=== PATIENT | female | born 1985 | race Caucasian/White ===

== ENCOUNTER 2016-08-31 11:04 | Day surgery (SDC) | payer OTHER ==
[~2016-08-31] VITALS: Ht 167.6 cm; Wt 83.0 kg
[~2016-08-31 11:04] MED LIST: ENDOCET 5-3251 EACH PO; EXCEDRIN MIGRA1 EACH PO; FLEXERIL10 MG PO; IBUPROFEN800 MG PO; IRON325 MG PO; KEFLEX500 MG PO; LEVOTHYROXINE50 MCG PO; NAPROSYN500 MG PO; NITROFURANTOIN50 MG PO; NUVARING VAGIN1 EACH PO; PREDNISONE10 M1 PO; PROAIR HFA8.5 GM IH; TYLENOL WITH C1 EACH PO; ~No Medications
[2016-08-31 11:46] VITALS: BP 108/72
[2016-08-31 15:04] VITALS: BP 104/65
[2016-08-31 16:05] VITALS: BP 104/58
== END 2016-08-31 16:15 | disposition home or self-care (01) ==
LOC: SDC 11:04
PROC: 0UDB8ZX Extraction of Endometrium, Via Natural or Artificial Opening Endoscopic, Diagnostic (ICD-10-PCS; principal; 2016-08-31)
DX: N93.8 Other specified abnormal uterine and vaginal bleeding (principal); N93.0 Postcoital and contact bleeding; I10 Essential (primary) hypertension; E05.90 Thyrotoxicosis, unspecified without thyrotoxic crisis or storm; J45.909 Unspecified asthma, uncomplicated; Z88.1 Allergy status to other antibiotic agents; Z91.013 Allergy to seafood; Z80.52 Family history of malignant neoplasm of bladder; Z83.3 Family history of diabetes mellitus; Z82.49 Family history of ischemic heart disease and other diseases of the circulatory system
CPT/HCPCS: 88305; J0690; J1100; J1885; J2250; J2405; J3010

== ENCOUNTER 2016-12-28 10:59 | Day surgery (SDC) | payer OTHER ==
[~2016-12-28] VITALS: Ht 167.6 cm; Wt 83.9 kg
[~2016-12-28 10:59] MED LIST changes: +IRON325 M1 PO
[2016-12-28 11:30] VITALS: BP 119/71
[2016-12-28 16:34] VITALS: BP 111/67
[2016-12-28 18:45] LABS: HEMATOCRIT 38.4 % (36.0-46.0); MCH 30.4 PG (29.0-34.0); MCHC 34.1 G/DL (30.0-36.0); MCV 89.1 FL (83-99); MEAN PLAT.VOLUME 10.8 uM^3 (9.5-12.4); PLATELET COUNT 227 K/uL (156-360); RBC DIS.WIDTH-CV 12.9 % (11.8-14.6); RBC DIS.WIDTH-SD 42.5 % (39-53); RED BLOOD COUNT 4.31 M/uL (3.80-5.20); WHITE BLOOD COUNT 8.1 K/uL (4.1-10.2)
[2016-12-28 19:09] LABS: ANION GAP 11 MEQ/L (2-14); CHLORIDE 104 MEQ/L (99-109); GFR ESTIMATE (CALCULATED) > 59 mL/min/; GLUCOSE 162 mg/dL (70-99); POTASSIUM 3.7 MEQ/L (3.7-5.4); SAMPLE HEMOLYSIS CHECK 0; SAMPLE ICTERIC CHECK 0; SAMPLE LIPEMIA CHECK 0; SODIUM 138 MEQ/L (136-147); UREA NITROGEN (BUN) 8 mg/dL (9-23)
[2016-12-28 19:43] VITALS: BP 102/60
[2016-12-28 23:34] VITALS: BP 106/65
[2016-12-29 04:13] VITALS: BP 97/57
[2016-12-29 06:47] LABS: HEMATOCRIT 36.2 % (36.0-46.0); MCH 29.8 PG (29.0-34.0); MCHC 33.1 G/DL (30.0-36.0); MCV 89.8 FL (83-99); MEAN PLAT.VOLUME 11.4 uM^3 (9.5-12.4); PLATELET COUNT 225 K/uL (156-360); RBC DIS.WIDTH-SD 43.3 % (39-53); RED BLOOD COUNT 4.03 M/uL (3.80-5.20); WHITE BLOOD COUNT 7.3 K/uL (4.1-10.2)
[2016-12-29 07:10] LABS: ANION GAP 7 MEQ/L (2-14); CHLORIDE 104 MEQ/L (99-109); GFR ESTIMATE (CALCULATED) > 59 mL/min/; POTASSIUM 4.2 MEQ/L (3.7-5.4); SAMPLE HEMOLYSIS CHECK 0; SAMPLE ICTERIC CHECK 0; SAMPLE LIPEMIA CHECK 0; SODIUM 140 MEQ/L (136-147); UREA NITROGEN (BUN) 7 mg/dL (9-23)
[2016-12-29 07:21] LABS: GLUCOSE 104 mg/dL (70-99)
[2016-12-29 07:35] VITALS: BP 113/60
[2016-12-29 11:20] VITALS: BP 107/60
[2016-12-29] MEDS ORDERED: TRAMADOL HCL50 MG PO (14:00)
== END 2016-12-29 15:09 | disposition home or self-care (01) ==
LOC: SDC 10:59 → 2SOUTH 14:30 → 2EAST 14:30 → ENRESERV 15:00 → SDC 15:03 → ENRESERV 15:18 → SDC 15:36 → 2EAST 16:27
PROVIDERS: Obstetrics & Gynecology Gynecologic Oncology
DX: N80.0 Endometriosis of uterus (principal); N72 Inflammatory disease of cervix uteri; N93.8 Other specified abnormal uterine and vaginal bleeding; N81.4 Uterovaginal prolapse, unspecified; E03.9 Hypothyroidism, unspecified; E66.9 Obesity, unspecified; F41.8 Other specified anxiety disorders; J45.909 Unspecified asthma, uncomplicated; Z83.3 Family history of diabetes mellitus; Z83.49 Family history of other endocrine, nutritional and metabolic diseases; Z83.2 Family history of diseases of the blood and blood-forming organs and certain disorders involving the immune mechanism; Z82.49 Family history of ischemic heart disease and other diseases of the circulatory system; Z88.0 Allergy status to penicillin; Z68.29 Body mass index [BMI] 29.0-29.9, adult
CPT/HCPCS: 80048; 85027; 88307; 99202; G0378; J0171; J0690; J1100; J1580; J1650; J2175; J2250; J2405; J3010; J7050; S0030

== ENCOUNTER 2017-01-16 17:13 | Emergency (ER) | payer OTHER ==
[~2017-01-16] VITALS: Ht 167.6 cm; Wt 83.0 kg
[~2017-01-16 17:13] MED LIST changes: +TRAMADOL HCL50 MG PO
[2017-01-16] MEDS ORDERED: TESSALON PERLE100 MG PO (19:03)
[2017-01-16 19:14] VITALS: BP 119/72
[2017-01-17] MEDS ORDERED: ROBITUSSIN AC,T10 ML PO (13:08)
== END 2017-01-16 19:15 | disposition home or self-care (01) ==
LOC: EME 17:13
DX: J04.0 Acute laryngitis (principal); R05 Cough; H92.01 Otalgia, right ear; Z88.0 Allergy status to penicillin
CPT/HCPCS: 71020; 99281; 99283

== ENCOUNTER 2017-01-17 10:37 | Emergency (ER) | payer OTHER ==
[~2017-01-17] VITALS: Ht 167.6 cm; Wt 83.0 kg
[~2017-01-17 10:37] MED LIST changes: +TESSALON PERLE100 MG PO
[2017-01-17 12:18] LABS: EOSINOPHIL (%) 0.9 % (0-5); EOSINOPHIL COUNT 0.1 K/uL (0-0.3); HEMATOCRIT 35.8 % (36.0-46.0); IMMATURE GRANULOCYTE (%) 0.6 % (0.0-0.7); IMMATURE GRANULOCYTE COUNT 0.1 K/uL; INSTRUMENT ABS NEUTROPHIL CT 7.2 K/uL; MCH 28.9 PG (29.0-34.0); MCHC 32.7 G/DL (30.0-36.0); MCV 88.4 FL (83-99); MEAN PLAT.VOLUME 10.5 uM^3 (9.5-12.4); MONOCYTE (%) 5.6 % (3-12); MONOCYTE COUNT 0.5 K/uL (0-0.8); NEUTROPHIL (%) 81.2 % (45-76); NEUTROPHIL COUNT 7.2 K/uL (1.8-6.4); RBC DIS.WIDTH-CV 12.4 % (11.8-14.6); RBC DIS.WIDTH-SD 39.9 % (39-53); RED BLOOD COUNT 4.05 M/uL (3.80-5.20); WHITE BLOOD COUNT 8.9 K/uL (4.1-10.2)
[2017-01-17 12:19] LABS: PLATELET COUNT 344 K/uL (156-360)
[2017-01-17 12:30] LABS: CHLORIDE 106 mEq/L (99-109); POTASSIUM 3.4 mEq/L (3.7-5.4); SODIUM 140 mEq/L (136-147)
[2017-01-17 12:33] LABS: GLUCOSE 93 mg/dL (70-99)
[2017-01-17 12:34] LABS: ANION GAP 8 MEQ/L (2-14)
[2017-01-17 12:35] LABS: TOTAL BILIRUBIN 0.4 mg/dL (0.0-1.0)
[2017-01-17 12:36] LABS: ALKALINE PHOSPHATASE 89 IU/L (3-129); GFR ESTIMATE (CALCULATED) > 59 mL/min/
[2017-01-17 12:38] LABS: UREA NITROGEN (BUN) 8 mg/dL (9-23)
[2017-01-17 12:40] LABS: LIPASE 28 U/L (1.0-51.0)
[2017-01-17] MEDS ORDERED: ROBITUSSIN AC,T10 ML PO (13:08)
[2017-01-17 13:22] VITALS: BP 116/76
== END 2017-01-17 13:26 | disposition home or self-care (01) ==
LOC: EME 10:37
PROVIDERS: Emergency Medicine
DX: B34.9 Viral infection, unspecified (principal); J45.909 Unspecified asthma, uncomplicated; Z90.710 Acquired absence of both cervix and uterus; Z87.442 Personal history of urinary calculi; Z88.1 Allergy status to other antibiotic agents; Z91.040 Latex allergy status
CPT/HCPCS: 80053; 83690; 85025; 99281; 99284

== ENCOUNTER 2017-08-17 15:19 | Emergency (ER) | payer OTHER ==
[~2017-08-17] VITALS: Ht 167.6 cm; Wt 89.0 kg
[~2017-08-17 15:19] MED LIST changes: +ROBITUSSIN AC,T10 ML PO
[2017-08-17 16:59] LABS: HEMATOCRIT 40.2 % (36.0-46.0); HEMOGLOBIN 13.4 G/DL (11.9-15.5); MCHC 33.3 G/DL (30.0-36.0); MCV 90.1 FL (83-99); PLATELET COUNT 288 K/uL (156-360); RBC DIS.WIDTH-CV 12.8 % (11.8-14.6); RBC DIS.WIDTH-SD 41.9 % (39-53); RED BLOOD COUNT 4.46 M/uL (3.80-5.20); WHITE BLOOD COUNT 6.7 K/uL (4.1-10.2)
[2017-08-17 17:09] LABS: CHLORIDE 106 mEq/L (99-109); SODIUM 141 mEq/L (136-147)
[2017-08-17 17:10] LABS: GLUCOSE 88 mg/dL (70-99)
[2017-08-17 17:14] LABS: CREATININE 0.8 mg/dL (0.6-1.3); GFR ESTIMATE (CALCULATED) > 59 mL/min/
[2017-08-17 17:15] LABS: UREA NITROGEN (BUN) 15 mg/dL (9-23)
[2017-08-17 17:21] LABS: TROP-I INTERPRETATION NEGATIVE; TROPONIN-I < 0.01 ng/mL (0.0-0.30)
[2017-08-17 17:49] VITALS: BP 105/72
== END 2017-08-17 17:52 | disposition home or self-care (01) ==
LOC: EME 15:19
PROVIDERS: Physician Assistant
DX: R07.89 Other chest pain (principal); J45.909 Unspecified asthma, uncomplicated; Z87.442 Personal history of urinary calculi; Z88.1 Allergy status to other antibiotic agents; Z88.7 Allergy status to serum and vaccine; Z91.041 Radiographic dye allergy status; Z88.0 Allergy status to penicillin; Z88.8 Allergy status to other drugs, medicaments and biological substances
CPT/HCPCS: 71046; 80048; 84484; 85027; 93005; 99281; 99284

== ENCOUNTER 2017-11-04 21:06 | Emergency (ER) | payer OTHER ==
[~2017-11-04] VITALS: Ht 167.6 cm; Wt 88.8 kg
[2017-11-04 22:00] LABS: HEMATOCRIT 36.9 % (36.0-46.0); HEMOGLOBIN 12.4 G/DL (11.9-15.5); MCH 29.9 PG (29.0-34.0); MCHC 33.6 G/DL (30.0-36.0); MCV 88.9 FL (83-99); PLATELET COUNT 289 K/uL (156-360); RBC DIS.WIDTH-CV 13.1 % (11.8-14.6); RBC DIS.WIDTH-SD 42.4 % (39-53); RED BLOOD COUNT 4.15 M/uL (3.80-5.20); WHITE BLOOD COUNT 6.9 K/uL (4.1-10.2)
[2017-11-04 22:10] LABS: APPEARANCE CLEAR ((CLEAR)); BILIRUBIN NEGATIVE; BLOOD NEGATIVE; COLOR YELLOW ((YELLOW)); GLUCOSE (STRIP) NEGATIVE; KETONES NEGATIVE; LEUKOCYTES NEGATIVE; NITRITE NEGATIVE; PROTEIN (STRIP) NEGATIVE; SPECIFIC GRAVITY 1.026 (1.000-1.030); UCUL ADDED? NO; UROBILINOGEN 0.2 MG/DL (0.2-1.0)
[2017-11-04 22:32] LABS: ALBUMIN 4.3 g/dL (3.2-4.8); CHLORIDE 105 mEq/L (99-109); POTASSIUM 3.7 mEq/L (3.7-5.4); SODIUM 140 mEq/L (136-147)
[2017-11-04 22:34] LABS: GLUCOSE 89 mg/dL (70-99); TOTAL PROTEIN 7.5 g/dL (6.4-8.3)
[2017-11-04 22:36] LABS: TOTAL BILIRUBIN 0.3 mg/dL (0.0-1.0)
[2017-11-04 22:38] LABS: ALKALINE PHOSPHATASE 82 IU/L (3-129); CREATININE 0.8 mg/dL (0.6-1.3); GFR ESTIMATE (CALCULATED) > 59 mL/min/
[2017-11-04 22:39] LABS: UREA NITROGEN (BUN) 15 mg/dL (9-23)
[2017-11-04 22:40] LABS: AST (GOT) 14 IU/L (2-34)
[2017-11-04 22:41] LABS: ALT (GPT) 10 IU/L (3-49); LIPASE 43 U/L (1.0-51.0)
[2017-11-05 01:23] VITALS: BP 110/65
== END 2017-11-05 01:26 | disposition home or self-care (01) ==
LOC: EME 21:06
PROVIDERS: Emergency Medicine
DX: R10.32 Left lower quadrant pain (principal); J45.909 Unspecified asthma, uncomplicated; Z79.51 Long term (current) use of inhaled steroids; Z87.442 Personal history of urinary calculi; Z90.710 Acquired absence of both cervix and uterus; Z88.0 Allergy status to penicillin; Z88.1 Allergy status to other antibiotic agents; Z88.7 Allergy status to serum and vaccine; Z91.041 Radiographic dye allergy status; Z88.8 Allergy status to other drugs, medicaments and biological substances; Z91.040 Latex allergy status; Z91.013 Allergy to seafood
CPT/HCPCS: 74176; 80053; 81003; 81025; 83690; 85027; 99281; 99285; J1885; J2765; J7030

== ENCOUNTER → 2017-11-13 | Outpatient (CLI) | payer OTHER ==
[~2017-11-13] VITALS: Ht 167.6 cm; Wt 83.9 kg
== END | disposition home or self-care (01) ==
LOC: AMB 13:00
PROC: 0DBP8ZX Excision of Rectum, Via Natural or Artificial Opening Endoscopic, Diagnostic (ICD-10-PCS; principal; 2017-11-13)
DX: R10.32 Left lower quadrant pain (principal); R10.2 Pelvic and perineal pain; Z87.440 Personal history of urinary (tract) infections; Z90.710 Acquired absence of both cervix and uterus; Z80.0 Family history of malignant neoplasm of digestive organs; Z83.3 Family history of diabetes mellitus; Z83.49 Family history of other endocrine, nutritional and metabolic diseases; Z82.49 Family history of ischemic heart disease and other diseases of the circulatory system; Z88.1 Allergy status to other antibiotic agents; Z88.2 Allergy status to sulfonamides
CPT/HCPCS: 88305; J2250